=== PATIENT | male | born 1960 | race Caucasian/White ===

== ENCOUNTER → 2017-01-26 | Outpatient (CLI) | payer OTHER ==
[2017-01-26 11:08] LABS: INR - (THERAPEUTIC) 3.19 (0.92-1.07); PROTIME 33.9 SECONDS (9.8-11.4)
== END ==
LOC: GLAB 10:30
PROVIDERS: Psychiatry & Neurology Neurology
DX: Z51.81 Encounter for therapeutic drug level monitoring (principal); I71.2 Thoracic aortic aneurysm, without rupture; Z79.01 Long term (current) use of anticoagulants